=== PATIENT | female | born 1995 | race African-American/Black ===

== ENCOUNTER 2016-09-23 12:54 | Emergency (ER) | payer OTHER ==
[~2016-09-23] VITALS: Ht 162.6 cm; Wt 70.7 kg
[~2016-09-23 12:54] MED LIST: PRENTAB26 PO
[2016-09-23 12:56] VITALS: TEMP 36.7; Ht 162.6 cm; Wt 70.7 kg
[2016-09-23 13:29] LABS: URINE APPEARANCE CLEAR (CLEAR); URINE BILIRUBIN NEG (NEG); URINE COLOR YELLOW; URINE NITRITE NEG (NEG); UROBILINOGEN NEG (NEG); ZZUR CULT IF INDIC CLEAN CATCH NO
[2016-09-23] MEDS ORDERED: LORAZEPAM 0.5 MG TAB SL STA (13:36)
[2016-09-23 13:40] LABS: MANUAL MICROSCOPIC REQUIRED? NO; REVIEW REQ? NO
--- NOTE | 2016-09-23 13:42 | EMERGENCY ROOM VISIT NOTE ---
History Report prepared by Katya: Arabella Oscar Under the Supervision of: Dr. Trevor Fleming D.O. First contact with patient: 13:23 Chief Complaint: PSYCHIATRIC PROBLEMS Stated Complaint: PSYCHIATRIC ISSUES, MENTAL BREAKDOWN History of Present Illness The patient is a 21 year old female who presents to the Emergency Room with complaints of worsening anxiety and depression that began prior to arrival. The patient states that she has a history of generalized anxiety disorder and severe depression. She states that in the past she would see a psychiatrist once per month and was previously on Zoloft. The patient states that approximately 14 months ago she stopped taking the medication since she became with her son. She denies ever being evaluated as an inpatient for her psychiatric problems. The patient states that since she was 8, she has intermittently attempted to harm herself. She states that she has previously tried taking entire bottles of Tylenol or other medications around the house, and has tried cutting herself. The patient denies any recent attempt to harm herself. She states that her anxiety and depression has been worsening recently , and states that she doesn't want her children or to see it. The patient states that she has tried consulting her primary care physician but cannot get in to see him until October. She states that today she was running late with her children, which she states stresses her out. The patient states that today she felt that she lost control and states that she felt that she got into a bad rage and couldn't control her thoughts. She states that she does not want to feel this way anymore. The patient states that her last menstrual cycle was prior to her . She denies any abnormal vaginal bleeding or discharge. The patient denies any recent illnesses. She denies any drug, alcohol, or tobacco use. She denies any active medical problems. Source of History: patient Onset: prior to arrival Position: other (global) Quality: other (anxiety and depression) Timing: worsening Modifying Factors (Worsening): other (stress) Review of Systems See HPI for pertinent positives & negatives. A total of 10 systems reviewed and were otherwise negative. Past Medical & Surgical Medical Problems: (1) Abdominal Pain, Other Specified Site (2) Chronic Tonsillitis (3) Headache (4) Preg State, Incidental (5) SROM (spontaneous rupture of membranes) (6) Supervis Oth Normal Preg Family History No pertinent family history stated. Social History Smoking Status: Never Smoker Alcohol Use: none Drug Use: none Current/Historical Medications No Active Prescriptions or Reported Meds Allergies Coded Allergies: No Known Allergies (Unverified , NONE, 09/23/16) Physical Exam Vital Signs Date Time Temp Pulse Resp B/P Pulse Ox O2 Delivery O2 Flow Rate FiO2 09/23/16 14:40 76 12 117/71 98 09/23/16 12:56 36.7 113 18 145/96 99 Room Air Physical Exam GENERAL: Patient is awake, alert, very anxious appearing and tearful. EYES: The conjunctivae are clear. The pupils are round and reactive. EARS, NOSE, MOUTH AND THROAT: The nose is without any evidence of any deformity. Mucous membranes are moist tongue is midline NECK: The neck is nontender and supple. RESPIRATORY: Normal respiratory effort is noted there is no evidence of wheezing rhonchi or rales CARDIOVASCULAR: Regular rate and rhythm noted there no murmurs rubs or gallops normal S1 normal S2 GASTROINTESTINAL: The abdomen is soft. Bowel sounds are present in all quadrants. Abdomen is nontender MUSCULOSKELETAL/EXTREMITIES: There is no evidence of gross deformity full range of motion is noted in the hips and shoulders SKIN: There is no obvious evidence of any rash. There are no petechiae, pallor or cyanosis noted. NEUROLOGIC: Patient is awake alert and oriented x3 strength is symmetric patellar reflexes are 2+ bilaterally PSYCH: Affect is very flat. Patient makes good eye contact at times. Currently denying any sucidial or homicidal ideation. Medical Decision & Procedures Laboratory Results Test 09/23/16 13:10 Urine Color YELLOW Urine Appearance CLEAR (CLEAR) Urine pH 6.0 (4.5-7.5) Urine Specific [place] 1.020 (1.000-1.030) Urine Protein NEG (NEG) Urine Glucose (UA) NEG (NEG) Urine Ketones NEG (NEG) Urine Occult Blood NEG (NEG) Urine Nitrite NEG (NEG) Urine Bilirubin NEG (NEG) Urine Urobilinogen NEG (NEG) Urine Leukocyte Esterase NEG (NEG) Urine Test NEG (NEG) Urine Opiates Screen NEG (NEG) Urine Methadone, Qualitative NEG (NEG) Urine Barbiturates NEG (NEG) Urine Phencyclidine (PCP) Level NEG (NEG) Ur Amphetamine/Methamphetamine NEG (NEG) MDMA (Ecstasy) Screen NEG (NEG) Urine Benzodiazepines Screen NEG (NEG) Urine Cocaine Metabolite NEG (NEG) Urine Marijuana (THC) POS (NEG) Laboratory results per my review. Medications Administered Medications (Trade) Dose Ordered Sig/Nany Route Start Time Stop Time Status Last Admin Dose Admin Lorazepam (Ativan Tab) 0.5 mg NOW STAT SL 09/23/16 13:36 09/23/16 13:37 DC 09/23/16 14:09 0.5 MG ED Course 1326: The patient was evaluated in room A7. A complete history and physical examination were performed. 1336: Ordered Ativan Tab 0.5 mg SL. 1347: After discussion with the psych rn case manager hospice. The patient would like to go home. Medical Decision Differential diagnosis: Etiologies such as mood disorder, infection, hypoglycemia, electrolyte abnormalities, cardiac sources, intracerebral event, toxicologic, neurologic, as well as others were entertained. Nursing notes reviewed. The patient is a 21-year-old female who presented to emergency department for an evaluation of anxiety. The patient had many stressors recently. She states that she did not have any active suicidal ideation. The patient was treated with Ativan in the emergency department. She was evaluated by the emergency department mental health rn case manager hospice. She was feeling much better on subsequent reevaluation. The patient was encouraged to continue all medications as prescribed. She was also encouraged to follow-up with her primary care physician as well as her primary therapist as scheduled and as soon as possible. She was also encouraged to call crisis or return to the emergency department immediately if symptoms change worsen or if the need arises. Impression Primary Impression: Anxiety Scribe Attestation The scribe's documentation has been prepared under my direction and personally reviewed by me in its entirety. I confirm that the note above accurately reflects all work, treatment, procedures, and medical decision making performed by me. Departure Information Dispostion Home / Self-Care Prescriptions No Active Prescriptions or Reported Meds Referrals No Doctor, Assigned (PCP) Forms HOME CARE DOCUMENTATION FORM, IMPORTANT VISIT INFORMATION, WORK / SCHOOL INSTRUCTIONS, Work Instructions Patient Instructions Anxiety Body Response, Anxiety Disorder, My [facility] Additional Instructions Follow-up with your therapist as soon as possible. Call crisis or return to emergency department immediately if symptoms change worsen or if the need arises. Continue all medications as prescribed.
[2016-09-23 13:49] LABS: BENZODIAZEPINE, URINE NEG (NEG); COCAINE,URINE NEG (NEG); PHENCYCLIDINE, URINE NEG (NEG)
[2016-09-23 14:24] LABS: PREG INTERNAL NEGATIVE QC NEG CLEAR BACKGROUND; PREG INTERNAL POSITIVE QC POS CONTROL LINE
[2016-09-23 14:40] VITALS: BP 117/71; PULSE 76; O2SAT 98
[2016-09-28 10:35] LABS: SYNTHETIC CANNABINOIDS QL URIN NEGATIVE (Negative)
[2016-10-30] MEDS ORDERED: QUET1TAB34 PO (13:33)
[2016-11-02] MEDS ORDERED: LEVO150T PO (10:54)
== END 2016-09-23 14:41 | disposition home or self-care (01) ==
LOC: C.EDB 12:55 → C.EDA 14:41
DX: F41.8 Other specified anxiety disorders (principal)

== ENCOUNTER → 2016-10-22 | Outpatient (CLI) | payer OTHER ==
[~2016-10-22] MED LIST changes: +LEVO150T PO; -PRENTAB26 PO; +QUET1TAB34 PO
[2016-10-22 12:17] LABS: BASO % 0.5 %; BASO ABS # 0.03 K/uL (0-0.2); COMPLETE YES; EOS % 3.4 %; HEMATOCRIT 41.9 % (37-47); IG% 0.5 %; LYMPH % 42.3 %; LYMPH ABS # 2.36 K/uL (1.2-3.4); MEAN CELL VOLUME 86.6 fL (80-100); MEAN CORPUSCULAR HEMOGLOBIN 29.8 pg (25-34); MEAN CORPUSCULAR HGB CONC 34.4 g/dl (32-36); MEAN PLATELET VOLUME 10.2 fL (7.4-10.4); MONO % 7.3 %; PLATELET COUNT 368 K/uL (130-400); RED BLOOD COUNT 4.84 M/uL (4.2-5.4); WHITE BLOOD COUNT 5.58 K/uL (4.8-10.8)
[2016-10-22 12:29] LABS: ALT/SGPT 30 U/L (12-78); BLOOD UREA NITROGEN 16 mg/dl (7-18); BUN/CREATININE RATIO 16.1 (10-20); CALCIUM 9.3 mg/dl (8.5-10.1); CARBON DIOXIDE 30 mmol/L (21-32); CHLORIDE 104 mmol/L (98-107); CHOLESTEROL 257 mg/dl (0-200); GLUCOSE 83 mg/dl (70-99); SODIUM 140 mmol/L (136-145); TRIGLYCERIDES 115 mg/dl (0-150); VERY LOW DENSITY LIPOPROT CALC 23 mg/dl
[2016-10-22 12:38] LABS: ALB/GLOB RATIO 1.1 (0.9-2); ALKALINE PHOSPHATASE 87 U/L (45-117); AST/SGOT 17 U/L (15-37); CHOLESTEROL/HDL RATIO 3.1; HDL CHOLESTEROL 83 mg/dl; LDL CHOLESTEROL CALCULATED 151 mg/dl
[2016-10-22 12:54] LABS: ESTIMATED AVERAGE GLUCOSE 97 mg/dl; HA1C FLAG Normal (Normal)
== END | disposition home or self-care (01) ==
LOC: C.LABBFT 08:49
PROVIDERS: ATTEND Urology
DX: Z79.899 Other long term (current) drug therapy (principal)

== ENCOUNTER → 2016-10-28 | Outpatient (CLI) | payer OTHER ==
[2016-10-28 17:49] LABS: BASO % 0.6 %; BASO ABS # 0.04 K/uL (0-0.2); COMPLETE YES; EOS % 2.6 %; HEMATOCRIT 39.7 % (37-47); IG% 0.2 %; LYMPH % 43.6 %; MEAN CELL VOLUME 85.9 fL (80-100); MEAN CORPUSCULAR HEMOGLOBIN 29.4 pg (25-34); MEAN CORPUSCULAR HGB CONC 34.3 g/dl (32-36); MEAN PLATELET VOLUME 10.2 fL (7.4-10.4); MONO % 7.4 %; NEUT % 45.6 %; PLATELET COUNT 344 K/uL (130-400); RED BLOOD COUNT 4.62 M/uL (4.2-5.4); WHITE BLOOD COUNT 6.19 K/uL (4.8-10.8)
[2016-10-28 18:10] LABS: ALT/SGPT 28 U/L (12-78); AST/SGOT 16 U/L (15-37); BLOOD UREA NITROGEN 15 mg/dl (7-18); BUN/CREATININE RATIO 15.5 (10-20); CARBON DIOXIDE 30 mmol/L (21-32); CHLORIDE 103 mmol/L (98-107); GLUCOSE 87 mg/dl (70-99); POTASSIUM 3.8 mmol/L (3.5-5.1); SODIUM 140 mmol/L (136-145)
[2016-10-28 18:20] LABS: ALB/GLOB RATIO 1.1 (0.9-2); ALKALINE PHOSPHATASE 79 U/L (45-117); C-REACTIVE PROTEIN < 0.29 mg/dl (0-0.29)
== END | disposition home or self-care (01) ==
LOC: C.LABBFT 15:10
PROVIDERS: ATTEND Registered Nurse
DX: R14.0 Abdominal distension (gaseous) (principal); Z79.899 Other long term (current) drug therapy

== ENCOUNTER → 2016-11-02 | Day surgery (SDC) | payer OTHER ==
[2016-10-30 13:33] VITALS: Ht 162.6 cm; Wt 72.7 kg
[~2016-11-02] VITALS: Ht 162.6 cm; Wt 72.7 kg
[~2016-11-02] MED LIST changes: +LIDOCAINE HCL 2% 2 ML VIAL (20MG/ML) ONE; +MIDAZOLAM HCL 1 MG/ML 2ML VIAL ONE; +PROPOFOL IV EMULSION 10 MG/ML 20 ML VIAL IV ONE; +SODIUM CHLORIDE 0.9% 500ML 500 ML IV ONE
--- NOTE | 2016-11-02 11:18 | Endo History and Physical ---
History & Physical Date of Service: Nov 02, 2016. Chief Complaint: LEFT QUAD ABD PAIN, BLOATING, DIARRHEA Referring Physician: DR MUÑIZ History of Present Illness 21 yo CF who presents for Colonoscopy secondary to Left sided abdominal pain, bloating and diarrhea. Past Surgical History Hx Cardiac Surgery: No Hx Internal Defibrillator: No Hx Pacemaker: No Hx Abdominal Surgery: No Hx of Implantable Prosthesis: No Hx Post-Op Nausea and Vomiting: No Hx Cancer Surgery: No Hx Thoracic Surgery: No Hx Orthopedic: No Hx Urinary Tract Surgery: No Family History None Social History Smoking Status: Never Smoker Hx Substance Use: No Hx Alcohol Use: No Allergies Coded Allergies: No Known Allergies (Unverified , NONE, 10/30/16) Current Medications Reported Home Medications Medications Dose Route/Sig Max Daily Dose Days Date Category Synthroid (Levothyroxine Sodium) 150 Mcg Tab 1 Tab PO DAILY 30 11/02/16 Reported Seroquel (Quetiapine Fumarate) 100 Mg Tab 100 Mg PO HS 10/30/16 Reported Vital Signs Weight (Kilograms): 72.73 Height (Feet): 5 Height (Inches): 4 Date Time Temp Pulse Resp B/P Pulse Ox O2 Delivery O2 Flow Rate FiO2 11/02/16 11:16 36.8 94 18 112/76 100 Room Air Physical Exam General Appearance: WD/WN, no apparent distress Respiratory/Chest: Auscultation: breath sounds normal Cardiovascular: Heart Auscultation: RRR Abdomen: Bowel Sounds: normal Inspection & Palpation: soft, non-distended, no tenderness, guarding & rebound Assessment and Plan Assessment: 21 yo CF who presents for Colonoscopy secondary to Left sided abdominal pain, bloating and diarrhea. Plan: Proceed with colonoscopy.
--- NOTE | 2016-11-02 11:50 | GI REPORT ---
Procedure Date: 11/02/2016 11:29 AM Procedure: Colonoscopy Indications: Abdominal pain in the left lower quadrant, Chronic diarrhea Medicines: Monitored Anesthesia Care Complications: No immediate complications. Estimated Blood Loss: Estimated blood loss: none. Procedure: Pre-Anesthesia Assessment: - Prior to the procedure, a History and Physical was performed, and patient medications and allergies were reviewed. The patient's tolerance of previous anesthesia was also reviewed. The risks and benefits of the procedure and the sedation options and risks were discussed with the patient. All questions were answered, and informed consent was obtained. Prior Anticoagulants: The patient has taken no previous anticoagulant or antiplatelet agents. ASA Grade Assessment: II - A patient with mild systemic disease. After reviewing the risks and benefits, the patient was deemed in satisfactory condition to undergo the procedure. After I obtained informed consent, the scope was passed under direct vision. Throughout the procedure, the patient's blood pressure, pulse, and oxygen saturations were monitored continuously. The Scope was introduced through the anus and advanced to the terminal ileum. The colonoscopy was performed without difficulty. The patient tolerated the procedure well. The quality of the bowel preparation was good. The terminal ileum, ileocecal valve, appendiceal orifice, and rectum were photographed. Findings: Non-bleeding internal hemorrhoids were found during retroflexion. The hemorrhoids were small. Biopsies were taken with a cold forceps in the entire colon for histology. Fluid aspiration for cytology was performed in the entire colon. Impression: - Non-bleeding internal hemorrhoids. - Biopsies were taken with a cold forceps for histology in the entire colon. - Fluid aspiration was performed. Recommendation: - Resume previous diet. - Continue present medications. - Await pathology results. - Return to GI office as previously scheduled. Dillon Henry DO 11/02/2016 11:50:01 AM This report has been signed electronically. Note Initiated On: 11/02/2016 11:29 AM I attest to the content of the Intraoperative Record and orders documented therein, exceptions below
--- NOTE | 2016-11-02 11:51 | Discharge Instructions ---
Endoscopy Patient Instructions Date / Procedure(s) Performed Nov 02, 2016. Colonoscopy Allergy Information Coded Allergies: No Known Allergies (Unverified , NONE, 10/30/16) Discharge Date / Findings Nov 02, 2016. Internal hemorrhoids Random colon biopsies Stool studies collected Medication Instructions OK to resume all medications today as prescribed. Reported Home Medications Medications Dose Route/Sig Max Daily Dose Days Date Category Synthroid (Levothyroxine Sodium) 150 Mcg Tab 1 Tab PO DAILY 30 11/02/16 Reported Seroquel (Quetiapine Fumarate) 100 Mg Tab 100 Mg PO HS 10/30/16 Reported Provider Instructions Activity Restrictions - No exercising or heavy lifting for 24 hours. - Do not drink alcohol the day of the procedure. - Do not drive a car or operate machinery until the day after the procedure. - Do not make any important decisions or sign important papers in 24 hours after the procedure. Following Day: - Return to full activity which may include returning to work/school. Diet Start your diet with liquids and light foods (jello, soup, juice, toast). Then eat your usual diet if not nauseated. Treatment For Common After Affects For mild abdominal pain, bloating, or excessive gas: - Rest - Eat lightly - Lie on right side Follow-Up Information Follow-up with DR MUÑIZ as scheduled Anesthesia Information What You Should Know You have had a procedure that required some medicine to reduce anxiety and discomfort. This treatment is called moderate sedation. After receiving the treatment, you may be sleepy, but you will be able to breathe on your own. The effects of the treatment may last for several hours. Follow these instructions along with Activity/Diet recommendations noted above: * Do NOT do anything where dizziness or clumsiness would be dangerous. * Rest quietly at home today, then you can be up and about tomorrow. * Have a responsible person stay with you the rest of today. * You may have had an I.V. today. If so, you may take the dressing off later today. Recommendations Call your doctor if: * Trouble breathing * Continuous vomiting for more than 24 hours * Temperature above 101 degrees * Severe abdominal pain or bloating * Pain not relieved by pain medicine ordered * There is increased drainage or redness from any incision * A large amount of rectal bleeding greater than 2-3 tablespoons. (If you had a polyp/s removed or have hemorrhoids, a small amount of blood - from the rectum is to be expected.) * You have any unanswered questions or concerns. IN THE EVENT OF A SERIOUS EMERGENCY, GO TO THE NEAREST EMERGENCY ROOM Your discharge instructions were prepared by provider Dillon Henry. Patient Instructions Signature Page Shameka Martines Patient (or Guardian) Signature/Date: I have read and understand the instructions given to me by my caregivers. Caregiver/RN/Doctor Signature/Date: The above-named patient and/or guardian has received patient instructions on this date. + Original Patient Signature Page (only) stays with chart. Please make copy for patient.
[2016-11-02 12:18] VITALS: BP 111/78; PULSE 81; O2SAT 100
--- NOTE | 2016-11-02 13:01 | Anesthesiology Progress Note ---
Anesthesia Post Op Note Date & Time Nov 02, 2016 at 13:00 Vital Signs Pain Intensity: 0 Vital Signs Past 12 Hours Date Time Temp Pulse Resp B/P Pulse Ox O2 Delivery O2 Flow Rate FiO2 11/02/16 12:18 81 18 111/78 100 Room Air 11/02/16 12:03 77 18 114/76 100 Room Air 11/02/16 11:48 102 18 102/73 100 Room Air 11/02/16 11:16 36.8 94 18 112/76 100 Room Air Notes Mental Status: alert / awake / arousable, participated in evaluation Pt Amnestic to Procedure: Yes Nausea / Vomiting: adequately controlled Pain: adequately controlled Airway Patency, RR, SpO2: stable & adequate BP & HR: stable & adequate Hydration State: stable & adequate Anesthetic Complications: no major complications apparent
== END | disposition home or self-care (01) ==
LOC: C.GI 10:37
PROVIDERS: ATTEND Internal Medicine
DX: R10.32 Left lower quadrant pain (principal); K52.9 Noninfective gastroenteritis and colitis, unspecified; R14.0 Abdominal distension (gaseous); K64.8 Other hemorrhoids; Z90.89 Acquired absence of other organs

== ENCOUNTER → 2017-01-01 | Outpatient (CLI) | payer OTHER ==
[~2017-01-01] MED LIST changes: -LIDOCAINE HCL 2% 2 ML VIAL (20MG/ML) ONE; -MIDAZOLAM HCL 1 MG/ML 2ML VIAL ONE; -PROPOFOL IV EMULSION 10 MG/ML 20 ML VIAL IV ONE; -SODIUM CHLORIDE 0.9% 500ML 500 ML IV ONE
[2017-01-01 17:15] LABS: THYROID STIMULATING HORMONE 3.27 uIu/ml (0.300-4.500)
== END | disposition home or self-care (01) ==
LOC: C.LABBFT 14:24
PROVIDERS: ATTEND Internal Medicine
DX: E03.9 Hypothyroidism, unspecified (principal)

== ENCOUNTER → 2017-01-20 | Day surgery (SDC) | payer OTHER ==
[~2017-01-20] VITALS: Ht 162.6 cm; Wt 72.7 kg
[~2017-01-20] MED LIST changes: +LIDOCAINE HCL 2% 2 ML VIAL (20MG/ML) ONE; +PROPOFOL IV EMULSION 10 MG/ML 20 ML VIAL IV ONE; +SODIUM CHLORIDE 0.9% 500ML 500 ML IV ONE
[2017-01-20 09:21] VITALS: Ht 162.6 cm; Wt 72.7 kg
--- NOTE | 2017-01-20 10:09 | Endo History and Physical ---
History & Physical Date of Service: Jan 20, 2017. Chief Complaint: ABDOMINAL PAIN Referring Physician: DR. MUÑIZ History of Present Illness 21 yo female who presents for EGD secondary to abdominal pain. Past Surgical History Hx Cardiac Surgery: No Hx Internal Defibrillator: No Hx Pacemaker: No Hx Abdominal Surgery: No Hx Post-Op Nausea and Vomiting: No Hx Cancer Surgery: No Hx Thoracic Surgery: No Hx Orthopedic: No Hx Urinary Tract Surgery: No Family History Colon CA Social History Smoking Status: Never Smoker Hx Substance Use: No Hx Alcohol Use: No Allergies Coded Allergies: No Known Allergies (Verified , NONE, 01/20/17) Current Medications Reported Home Medications Medications Dose Route/Sig Max Daily Dose Days Date Category Synthroid (Levothyroxine Sodium) 150 Mcg Tab 1 Tab PO DAILY 30 11/02/16 Reported Seroquel (Quetiapine Fumarate) 100 Mg Tab 100 Mg PO HS 10/30/16 Reported Vital Signs Weight (Kilograms): 72.73 Height (Feet): 5 Height (Inches): 4 Date Time Temp Pulse Resp B/P (MAP) Pulse Ox O2 Delivery O2 Flow Rate FiO2 01/20/17 09:29 36.6 99 20 131/81 (98) 100 Room Air Physical Exam General Appearance: WD/WN, no apparent distress Respiratory/Chest: Auscultation: breath sounds normal Cardiovascular: Heart Auscultation: RRR Abdomen: Bowel Sounds: normal Inspection & Palpation: soft, non-distended, no tenderness, guarding & rebound Assessment and Plan Assessment: 21 yo female who presents for EGD secondary to abdominal pain. Plan: Proceed with EGD.
--- NOTE | 2017-01-20 10:23 | Discharge Instructions ---
Endoscopy Patient Instructions Date / Procedure(s) Performed Jan 20, 2017. EGD Allergy Information Coded Allergies: No Known Allergies (Verified , NONE, 01/20/17) Discharge Date / Findings Jan 20, 2017. Gastric antrum biopsies Medication Instructions OK to resume all medications today as prescribed Reported Home Medications Medications Dose Route/Sig Max Daily Dose Days Date Category Synthroid (Levothyroxine Sodium) 150 Mcg Tab 1 Tab PO DAILY 30 11/02/16 Reported Seroquel (Quetiapine Fumarate) 100 Mg Tab 100 Mg PO HS 10/30/16 Reported Provider Instructions Activity Restrictions - No exercising or heavy lifting for 24 hours. - Do not drink alcohol the day of the procedure. - Do not drive a car or operate machinery until the day after the procedure. - Do not make any important decisions or sign important papers in 24 hours after the procedure. Following Day: - Return to full activity which may include returning to work/school. Diet Start your diet with liquids and light foods (jello, soup, juice, toast). Then eat your usual diet if not nauseated. Treatment For Common After Affects For mild abdominal pain, bloating, or excessive gas: - Rest - Eat lightly - Lie on right side Follow-Up Information Follow-up with DR. MUÑIZ as scheduled Anesthesia Information What You Should Know You have had a procedure that required some medicine to reduce anxiety and discomfort. This treatment is called moderate sedation. After receiving the treatment, you may be sleepy, but you will be able to breathe on your own. The effects of the treatment may last for several hours. Follow these instructions along with Activity/Diet recommendations noted above: * Do NOT do anything where dizziness or clumsiness would be dangerous. * Rest quietly at home today, then you can be up and about tomorrow. * Have a responsible person stay with you the rest of today. * You may have had an I.V. today. If so, you may take the dressing off later today. Recommendations Call your doctor if: * Trouble breathing * Continuous vomiting for more than 24 hours * Temperature above 101 degrees * Severe abdominal pain or bloating * Pain not relieved by pain medicine ordered * There is increased drainage or redness from any incision * A large amount of rectal bleeding greater than 2-3 tablespoons. (If you had a polyp/s removed or have hemorrhoids, a small amount of blood - from the rectum is to be expected.) * You have any unanswered questions or concerns. IN THE EVENT OF A SERIOUS EMERGENCY, GO TO THE NEAREST EMERGENCY ROOM Your discharge instructions were prepared by provider Dillon Henry. Patient Instructions Signature Page Shameka Martines Patient (or Guardian) Signature/Date: I have read and understand the instructions given to me by my caregivers. Caregiver/RN/Doctor Signature/Date: The above-named patient and/or guardian has received patient instructions on this date. + Original Patient Signature Page (only) stays with chart. Please make copy for patient.
--- NOTE | 2017-01-20 10:43 | Anesthesiology Progress Note ---
Anesthesia Post Op Note Date & Time Jan 20, 2017 at 10:43 Vital Signs Vital Signs Past 12 Hours Date Time Temp Pulse Resp B/P (MAP) Pulse Ox O2 Delivery O2 Flow Rate FiO2 01/20/17 10:36 87 16 113/17 (49) 98 Room Air 01/20/17 10:21 101 16 120/82 (95) 97 Room Air 01/20/17 09:29 36.6 99 20 131/81 (98) 100 Room Air Notes Mental Status: alert / awake / arousable, participated in evaluation Pt Amnestic to Procedure: Yes Nausea / Vomiting: adequately controlled Pain: adequately controlled Airway Patency, RR, SpO2: stable & adequate BP & HR: stable & adequate Hydration State: stable & adequate Anesthetic Complications: no major complications apparent
[2017-01-20 10:51] VITALS: BP 119/78; PULSE 85; O2SAT 100
--- NOTE | 2017-01-20 10:58 | GI REPORT ---
Procedure Date: 01/20/2017 9:52 AM Procedure: Upper GI endoscopy Indications: Epigastric abdominal pain Medicines: Monitored Anesthesia Care Complications: No immediate complications. Estimated Blood Loss: Estimated blood loss: none. Procedure: Pre-Anesthesia Assessment: - Prior to the procedure, a History and Physical was performed, and patient medications and allergies were reviewed. The patient's tolerance of previous anesthesia was also reviewed. The risks and benefits of the procedure and the sedation options and risks were discussed with the patient. All questions were answered, and informed consent was obtained. Prior Anticoagulants: The patient has taken no previous anticoagulant or antiplatelet agents. ASA Grade Assessment: II - A patient with mild systemic disease. After reviewing the risks and benefits, the patient was deemed in satisfactory condition to undergo the procedure. After obtaining informed consent, the endoscope was passed under direct vision. Throughout the procedure, the patient's blood pressure, pulse, and oxygen saturations were monitored continuously. The scope was introduced through the mouth, and advanced to the second part of duodenum. The upper GI endoscopy was accomplished without difficulty. The patient tolerated the procedure well. Findings: The esophagus was normal. The entire examined stomach was normal. Biopsies were taken with a cold forceps for Helicobacter pylori testing. The examined duodenum was normal. Impression: - Normal esophagus. - Normal stomach. Biopsied. - Normal examined duodenum. Recommendation: - Resume previous diet. - Continue present medications. - Await pathology results. - Return to GI office as previously scheduled. Dillon Henry DO 01/20/2017 10:57:36 AM This report has been signed electronically. Note Initiated On: 01/20/2017 9:52 AM I attest to the content of the Intraoperative Record and orders documented therein, exceptions below
== END | disposition home or self-care (01) ==
LOC: C.GI 09:08
PROVIDERS: ATTEND Internal Medicine
DX: K29.50 Unspecified chronic gastritis without bleeding (principal); Z80.0 Family history of malignant neoplasm of digestive organs; Z79.899 Other long term (current) drug therapy

== ENCOUNTER → 2017-03-02 | Outpatient (CLI) | payer OTHER ==
[~2017-03-02] MED LIST changes: -LIDOCAINE HCL 2% 2 ML VIAL (20MG/ML) ONE; -PROPOFOL IV EMULSION 10 MG/ML 20 ML VIAL IV ONE; -SODIUM CHLORIDE 0.9% 500ML 500 ML IV ONE
[2017-03-02 18:17] LABS: THYROID STIMULATING HORMONE 1.05 uIu/ml (0.300-4.500)
== END | disposition home or self-care (01) ==
LOC: C.LABBFT 08:36
PROVIDERS: ATTEND Internal Medicine
DX: E03.9 Hypothyroidism, unspecified (principal)

== ENCOUNTER → 2017-07-16 | Outpatient (CLI) | payer OTHER | END | disposition home or self-care (01) | LOC: C.LABBFT 15:08 | PROVIDERS: ATTEND Obstetrics & Gynecology | DX: N91.2 Amenorrhea, unspecified (principal) ==

== ENCOUNTER → 2018-03-10 | Outpatient (CLI) | payer OTHER | END | disposition home or self-care (01) | LOC: C.LABSPEC 12:00 | PROVIDERS: ATTEND Obstetrics & Gynecology | DX: B37.3 Candidiasis of vulva and vagina (principal) ==